=== PATIENT | female | born 1980 | race African-American/Black ===

== ENCOUNTER 2020-06-05 19:09 | Inpatient (IN) | payer SELFPAY ==
[~2020-06-05 19:09] MED LIST: Iopamidol 370 76% 100 ML VIAL ONE
[2020-06-05] MEDS ORDERED: Ketorolac Tromethamine 30 MG/ML VIAL ONE (19:55)
[2020-06-05] MEDS ORDERED: Vancomycin 1 GM/200 ML BAG ONE (19:55)
[2020-06-05] MEDS ORDERED: Morphine 4 MG/ML VIAL ONE (19:55)
--- NOTE | 2020-06-05 19:57 | RAD ---
EXAM: CHEST ONE VIEW HISTORY: Shortness of breath. COMPARISON: None FINDINGS: The cardiac silhouette and pulmonary vasculature are within normal limits. The lungs are clear. The o sseous structures are intact. IMPRESSION: No acute cardiopulmonary process.
[2020-06-05 20:02] LABS: Hemoglobin 12.2 g/dL (12.0-16.0); Mean Corpuscular HGB CONC 33.3 g/dL (32.0-36.0); Mean Corpuscular Hemoglobin 33.4 pg (27.0-31.0); Mean Platelet Volume 7.9 fL (7.4-10.4); Platelet Count 318 thou/uL (130-400); RBC Distribution Width 10.6 % (11.5-14.5); Red Blood Cell (RBC) Count 3.65 mill/uL (4.20-5.40)
[2020-06-05 20:07] LABS: Prothrombin Time 13.2 sec (12.0-14.7)
[2020-06-05] MEDS ORDERED: Ampicillin/Sulbactam 1.5 GM in Sodium Chloride 0.9% 100 ML IVPB ONE (20:15)
[2020-06-05 20:17] LABS: ALT (SGPT) 22 U/L (8-55); AST (SGOT) 19 U/L (5-34); Albumin 3.9 g/dL (3.5-5.0); Alkaline Phosphatase 95 U/L (40-110); Anion Gap 17 mmol/L (10-20); BUN (Urea Nitrogen) 8 mg/dL (7.0-18.7); Bilirubin, Total 0.6 mg/dL (0.2-1.2); Calc. Creatinine Clearance 0 mL/min (70-130); Calcium 8.8 mg/dL (7.8-10.44); Carbon Dioxide 20 mmol/L (22-29); Chloride 100 mmol/L (98-107); Globulin 4.6 g/dL (2.4-3.5); Glucose 110 mg/dL (70-105); Lipase 5 U/L (8-78); Potassium 3.8 mmol/L (3.5-5.1); Protein, Total 8.5 g/dL (6.0-8.3); Sodium 133 mmol/L (136-145)
[2020-06-05 20:23] LABS: Band 9 % (5-11); Lymphocytes 13 % (21-51); MDiff Complete? YES; Macrocytosis SLIGHT = 6-15 cells (100X) (0-5/hpf); Monocytes 5 % (0-10); Neutrophil 63 % (42-75); Platelet Morphology Comment Appears Adequate; Polychromasia SLIGHT = 2-3 cells (100X) (0-2/hpf); Reactive Lymphocytes 10 % (0-10)
[2020-06-05 20:23] LABS: Bacteria/HPF 2+ HPF (None Seen); Bilirubin Negative (Negative); Blood, Urine 1+ (Negative); Clarity Turbid (Clear); Glucose, Urine (Dipstick) Normal (Negative); Ketone, Urine Negative (Negative); Leukocyte 500 Leu/uL (Negative); Nitrite Negative (Negative); Protein, Urine (Dipstick) 20 mg/dL (Neg-Trace); Specific Gravity, Urine 1.011 (1.002-1.036); Transitional Epithelial 0-3 HPF (None Seen); WBC/HPF Greater than 50 HPF (0-3)
[2020-06-05 20:28] LABS: Yeast-Budding None Seen HPF (None Seen)
--- NOTE | 2020-06-05 22:52 | CT ---
EXAM: CT Facial Bones W Con PROVIDED CLINICAL HISTORY: Patient had tooth pulled from right mandible on . Patient was told she had infection but not administered antibiotics. Patient reports fevers. Evaluate for abscess. COMPARISON: None FINDINGS: There is absence of a right mandibular molar with lucency seen in the mandible and low-density area a s well as gas seen at this site with adjacent thinning of the lateral wall of the mandible. This is likely site of patient's recent tooth extraction. However, there is greater lucency seen at the expec delores location of the site of the root of the removed tooth which could be related to small abscess in this region. There is no adjacent fluid or fluid collection in the soft tissues to suggest abscess collection. No adjacent inflammatory stranding or fluid is seen. Paranasal sinuses and visualized mastoid air cells are clear. Facial bones are normal in appearance w ithout evidence of a fracture. The orbits are normal and symmetric in appearance bilaterally. Limited visualized base of the brain h as a normal CT appearance. IMPRESSION: Absence of a right mandibular molar likely related to site of patient's prior tooth extraction. The l ucency at site of the prior roots of the tooth are larger than expected and abscess in this region is a possibility. However, there is no inflammatory stranding, fluid, or fluid collection to suggest an abscess in the soft tissues adjacent to site of tooth extraction.
[2020-06-05 22:53] VITALS: BMI 34.9
[2020-06-05] MEDS ORDERED: Morphine 2 MG/ML VIAL SLOW IVP PRN (23:07)
[2020-06-05] MEDS ORDERED: Ondansetron ODT 4 MG TAB SL PRN (23:15)
[2020-06-05] MEDS ORDERED: Acetaminophen 325 MG TAB PO PRN (23:15)
[2020-06-05] MEDS ORDERED: Ondansetron PF 4 MG/2 ML Vial IVP PRN (23:15)
[2020-06-05] MEDS ORDERED: cefTRIAXone\\ROCEPHIN 1 GM in Sodium Chloride 0.9% 100 ML IVPB SCH (23:15)
[2020-06-05] MEDS: Sodium Chloride 0.9% 1,000 ML IV SCH (23:17)
--- NOTE | 2020-06-05 23:36 | PDOC.HHP ---
Hospitalist HPI - History of Present Illness Tooth pain, dysuria frequency History of Present Illness: This is a 40-year-old female patient with a history of bipolar disorder who presents with worsening pain in her jaw. She had a tooth extraction 3 days ago and she was told by her dentist a tooth was infected. She was not covered on antibiotics as he said extraction alone should be enough. Her jaw has progressively become worseleading her to the ED for further evaluation. Alongside she has been having increased urinary frequency and dysuria for the past couple of days with pain in her right flank. She notes having had a history of pyelonephritis diagnosed 2 years ago involving her right kidney. At presentation blood pressure was 145/101, pulse was 148, temperature 102.3 saturation 99% on room air. Labs showed WBC 19.0, hemoglobin 12.2, platelets 312. Sodium was 133, urinalysis showed 500 leukocyte esterase, greater than 50 WBCs 3+ bacteria. (Pain was assessed with the face bone CT which revealed absence of right mandibular molar and some concern for abscess at the roots of the tooth. She was initially given Unasyn and Toradol and vancomycin. Antibiotic was subsequently converted to ceftriaxone to cover for urinary tract infection Hospitalist team was consulted to admit. Hospitalist ROS - Review of Systems Constitutional: reports: fever, malaise. denies: chills, sweats, weakness Respiratory: denies: cough, dry, shortness of breath, hemoptysis Cardiovascular: denies: chest pain, palpitations, orthopnea, paroxysmal noc. dyspnea Gastrointestinal: reports: nausea. denies: vomiting, diarrhea Genitourinary: reports: dysuria, frequency. denies: incontinence, hematuria Neurological: denies: weakness, numbness, incoordination, change in speech All other systems reviewed; all pertinent +/- noted in HPI/Subj - Medication Medications: Active Medications Generic Name Dose Route Start Last Admin Trade Name Freq PRN Reason Stop Dose Admin Acetaminophen 650 mg 06/05/20 23:15 06/05/20 23:17 Acetaminophen 325 Mg Tab PO 06/06/20 09:20 650 mg Q4H PRN Administration Headache/Fever or Pain Sodium Chloride 1,000 mls @ 150 mls/hr 06/05/20 23:15 06/05/20 23:17 Normal Saline 0.9% IV 06/06/20 09:20 1,000 mls .Q6H40M QUINN Administration Ceftriaxone Sodium 1 gm/ 100 mls @ 200 mls/hr 06/05/20 23:15 06/05/20 23:16 Sodium Chloride IVPB 06/06/20 01:00 100 mls NOW QUINN Administration Kindly refer to ambulatory Rosalie for medication list. Allergies: Sulfamethoxazole, trimethoprim Hospitalist History - Past Medical History Other Medical History: Pyelonephritis, bipolar disorder - Past Surgical History Other Surgical History: section, tubal ligation - Family History Family History: reports: no pertinent history - Social History Smoking Status: Current every day smoker Alcohol: reports: Occassional Living Situation: With Family - Exam General Appearance: awake alert ENT: normocephalic atraumatic, no oropharyngeal lesions Heart: RRR, no murmur, no gallops Respiratory: CTAB, no wheezes, no rales, no ronchi Gastrointestinal: soft, non-distended, normal bowel sounds Gastrointestinal - other findings: Right flank tenderness. Extremities: no cyanosis, no clubbing, no edema Skin: normal turgor, no lesions Neurological: cranial nerve grossly intact, normal sensation to touch, no focal deficits Psychiatric: normal affect, normal behavior, A&O x 3 Hospitalist Results - Labs Result Diagrams: 06/05/20 19:21 06/05/20 19:21 Lab results: WBC 19.0 thou/uL (4.8-10.8) H 06/05/20 19:21 Hgb 12.2 g/dL (12.0-16.0) 06/05/20 19: Hct 36.6 % (36.0-47.0) 06/05/20 19: MCV 100.0 fL (78.0-98.0) H 06/05/20 19:21 Plt Count 318 thou/uL (130-400) 06/05/20 19:21 Band Neuts % (Manual) 9 % (5-11) 06/05/20 19: Sodium 133 mmol/L (136-145) L 06/05/20 19:21 Potassium 3.8 mmol/L (3.5-5.1) 06/05/20 19: Chloride 100 mmol/L (98-107) 06/05/20 19: Carbon Dioxide 20 mmol/L (22-29) L 06/05/20 19:21 BUN 8 mg/dL (7.0-18.7) 06/05/20 19: Creatinine 0.90 mg/dL (0.6-1.1) 06/05/20 19: Glucose 110 mg/dL (70-105) H 06/05/20 19:21 Lactic Acid 1.6 mmol/L (0.5-2.2) 06/05/20 19: Calcium 8.8 mg/dL (7.8-10.44) 06/05/20 19: Total Bilirubin 0.6 mg/dL (0.2-1.2) 06/05/20 19: AST 19 U/L (5-34) 06/05/20: ALT 22 U/L (8-55) 06/05/20: Alkaline Phosphatase 95 U/L (40-110) 06/05/20 19: Serum Total Protein 8.5 g/dL (6.0-8.3) H 06/05/20: Albumin 3.9 g/dL (3.5-5.0) 06/05/20 19: Lipase 5 U/L (8-78) L 06/05/20 19: Urine Ketones Negative mg/dL (Negative) 06/05/20 19: Urine Blood 1+ (Negative) A 06/05/20 19: Urine Nitrite Negative (Negative) 06/05/20 19:55 Ur Leukocyte Esterase 500 Farzad/uL (Negative) A 06/05/20 19:55 Urine RBC 4-6 HPF (0-3) A 06/05/20 19:55 Urine WBC Greater than 50 HPF (0-3) A 06/05/20 19:55 Ur Squamous Epith Cells 11-20 HPF (0-3) A 06/05/20 19:55 Urine Bacteria 2+ HPF (None Seen) A 06/05/20 19:55 Hospitalist H&P A/P - Plan Plan: This is a 40-year-old female patient presents on on account of worsening pain in her right shoulder after molar extraction a few days ago with also ongoing dysur ia and frequency with right flank pain concerning for pyelonephritis. Her vital signs are suggestive of sepsis. Sepsis Patient has fever of 101.2, tachycardia of 118, leukocytosis and source likely tooth and urinary tract Started on Unasyn and transitioned to ceftriaxone Received 2 L normal saline and continued on 125 mils per hour of normal saline We will continue antibiotic management and Zosyn Follow-up cultures. UTI/right pyelonephritis Continue IV fluids Continue on Zosyn Consider CT abdomen if no improvement noted Follow-up cultures. Right jaw abscess We will cover with Zosyn for now Consider dental evaluation in a.m. Hyponatremia Mild Monitor BMP Bipolar disorder Resume home medications once verified. Tobacco abuse Consult CODE STATUSfull code DVT prophylaxisLovenox
[2020-06-06] MEDS: Morphine 2 MG/ML VIAL SLOW IVP PRN ×4 (01:52→19:38)
[2020-06-06 02:08] LABS: SARS-CoV-2 MS2 Positive; SARS-CoV-2 N Gene Negative; SARS-CoV-2 S Gene Negative; SARS-CoV-2 by NAA Not Detected (NotDetected); SARS-CoV-2 orf1ab Negative
[2020-06-06] MEDS: Piperacillin/Tazobactam 4.5 GM in Sodium Chloride 0.9% 100 ML IVPB SCH ×3 (04:46→19:44)
[2020-06-06] MEDS: Sodium Chloride 0.9% 1,000 ML IV SCH ×3 (04:46→19:45)
[2020-06-06 06:03] LABS: #Eosinphils 0.1 thou/uL (0.0-0.7); #Lymphocytes 3.3 thou/uL (1.20-3.40); #Monocytes 1.6 thou/uL (0.11-0.59); #Neutrophils 7.9 thou/uL (1.40-6.50); %Basophils 0.3 % (0.0-1.0); %Eosinophils 1.1 % (0.0-10.0); %Lymphocytes 25.4 % (21.0-51.0); %Monocytes 12.3 % (0.0-10.0); %Neutrophils 60.7 % (42.0-75.0); Hemoglobin 10.6 g/dL (12.0-16.0); Mean Corpuscular HGB CONC 33.1 g/dL (32.0-36.0); Mean Corpuscular Hemoglobin 33.8 pg (27.0-31.0); Mean Platelet Volume 7.4 fL (7.4-10.4); Platelet Count 273 thou/uL (130-400); RBC Distribution Width 10.5 % (11.5-14.5); Red Blood Cell (RBC) Count 3.13 mill/uL (4.20-5.40)
--- NOTE | 2020-06-06 08:54 | PDOC.HOSPP ---
- Subjective Encounter Date: 06/06/20 Encounter Time: 11:00 Subjective: Patient feeling much better. Jaw not hurting at all today. Right flank/back pain improved. - Objective Vital Signs & Weight: Vital Signs (12 hours) Temp Pulse Resp BP BP Pulse Ox 06/06/20 08:05 98.1 F 95 16 119/84 99 06/06/20 04:50 98 F 81 16 106/67 97 06/05/20 22:53 98.4 F 100 18 119/83 99 Weight Weight 185 lb 3.2 oz Result Diagrams: 06/06/20 05:37 06/05/20 19:21 Hospitalist ROS - Review of Systems Constitutional: denies: fever, chills Respiratory: denies: cough, shortness of breath Cardiovascular: denies: chest pain, palpitations Gastrointestinal: denies: nausea, vomiting, abdominal pain Genitourinary: denies: dysuria, hematuria Musculoskeletal: reports: back pain - Medication Medications: Active Medications Generic Name Dose Route Start Last Admin Trade Name Freq PRN Reason Stop Dose Admin Acetaminophen 650 mg 06/05/20 23:15 06/05/20 23:17 Acetaminophen 325 Mg Tab PO 06/06/20 09:20 650 mg Q4H PRN Administration Headache/Fever or Pain Sodium Chloride 1,000 mls @ 150 mls/hr 06/05/20 23:15 06/06/20 04:46 Normal Saline 0.9% IV 06/06/20 09:20 1,000 mls .Q6H40M QUINN Administration Piperacillin Sod/Tazobactam 100 mls @ 200 mls/hr 06/06/20 04:00 06/06/20 04:46 Sod 4.5 gm/ Sodium Chloride IVPB 100 mls 0400,1200,2000 QUINN Administration Morphine Sulfate 2 mg 06/06/20 01:45 06/06/20 08:12 Morphine 2 Mg/Ml Vial SLOW IVP 2 mg Q4H PRN Administration Severe Pain (7-10) - Exam General Appearance: NAD, awake alert ENT: moist mucosa Heart: RRR, no murmur, no gallops, no rubs Respiratory: CTAB, no wheezes, no rales, no ronchi Gastrointestinal: soft, non-tender, non-distended, normal bowel sounds Extremities: no edema Musculoskeletal - other findings: Right sided CVA tenderness to percussion Psychiatric: normal affect, normal behavior, A&O x 3 Hosp A/P - Plan This is a 40-year-old female patient presents on on account of worsening pain in her right shoulder after molar extraction a few days ago with also ongoing dysuria and frequency with right flank pain concerning for pyelonephritis. Her vital signs are suggestive of sepsis. Sepsis Patient has fever of 101.2, tachycardia of 118, leukocytosis and source likely tooth and urinary tract Started on Unasyn and transitioned to ceftriaxone Received 2 L normal saline and continued on 125 mils per hour of normal saline We will continue antibiotic management and Zosyn Follow-up cultures. UTI/right pyelonephritis Continue IV fluids Continue on Zosyn Consider CT abdomen if no improvement noted Follow-up cultures. Will need at least one more day of IV abx. Will convert to inpatient status. Right jaw infection/possible abscess vs. dry socket We will cover with Zosyn for now, appears to be resolving Hyponatremia Mild Monitor BMP Bipolar disorder Resume home medications once verified. Tobacco abuse Consult CODE STATUSfull code DVT prophylaxisLovenox
[2020-06-06] MEDS: PARoxetine 20 MG TAB PO SCH (09:28)
[2020-06-06] MEDS: buPROPion HCl 100 MG TAB PO SCH (09:28)
[2020-06-06] MEDS ORDERED: traZODone HCl 150 MG TAB PO SCH (21:00)
[2020-06-07] MEDS: Piperacillin/Tazobactam 4.5 GM in Sodium Chloride 0.9% 100 ML IVPB SCH ×2 (03:39→11:40)
[2020-06-07] MEDS: Morphine 2 MG/ML VIAL SLOW IVP PRN ×2 (04:42→14:07)
[2020-06-07] MEDS: Sodium Chloride 0.9% 1,000 ML IV SCH ×2 (05:43→11:44)
[2020-06-07] MEDS: buPROPion HCl 100 MG TAB PO SCH (10:00)
[2020-06-07] MEDS: PARoxetine 20 MG TAB PO SCH (10:00)
--- NOTE | 2020-06-07 16:08 | PDOC.DS.DS ---
Provider - Provider Date of Admission: 06/06/20 08:55 Date of Discharge: 06/07/20 Admitting Provider: Lyle Torres MD Primary Care Physician: NO PCP PROVIDER Course - Hospital Course Hospital Course: This is a 40-year-old female patient presents on on account of worsening pain in her right shoulder after molar extraction a few days ago with also ongoing dysuria and frequency with right flank pain concerning for pyelonephritis. Her urine culture did show multi-sensitive Ecoli, she was started on Zosyn and responded well, for the past 24h her vitals have been stable and she is a- febrile.she is eager to go home. Her hgb dropped after hydration, she told me that she has chronic anemia, was on iron, has heavy menses, and has a history of fibroids. I believe that initially she was hemo-concentrated. She was advised to follow-up with pcp and [facility] for her anemia and fibroids, she verbalized understanding. she will be sent on 7 days of Augmentin and can resume home psych meds. Resuscitation Status: 06/05/20 23:24 Resuscitation Status Routine Resuscitation Status: FULL: Full Resuscitation - Labs Lab Results: 06/06/20 05:37 06/05/20 19:21 Abnormal Lab Results - Last 48 hrs 06/05/20 19:21: Sodium 133 L, Carbon Dioxide 20 L, Serum Total Protein 8.5 H, Globulin 4.6 H, Albumin/Globulin Ratio 0.8 L, Lipase 5 L 06/05/20 19:21: WBC 19.0 H, RBC 3.65 L, MCV 100.0 H, MCH 33.4 H, RDW 10.6 L, Lymphocytes % (Manual) 13 L 06/05/20 19:55: Urine Clarity Turbid A, Urine Blood 1+ A, Urine Urobilinogen 2.0 A, Ur Leukocyte Esterase 500 A, Urine RBC 4-6 A, Urine WBC Greater than 50 A, Ur Squamous Epith Cells 11-20 A, Ur Transition Epith Cell 0-3 A, Urine Bacteria 2+ A 06/06/20 05:37: WBC 13.0 H, RBC 3.13 L, Hgb 10.6 L, Hct 31.9 L, MCV 102.0 H, MCH 33.8 H, RDW 10.5 L, Monocytes % 12.3 H, Neutrophils # 7.9 H, Monocytes # 1.6 H Microbiology - Entire Visit 06/05/20 19:55 Urine clean catch Urine Culture - Final Escherichia coli 06/05/20 19:21 Venous blood - Right Arm Blood Culture - Preliminary NO GROWTH AT 48 HOURS 06/05/20 19:21 Venous blood - Left Hand Blood Culture - Preliminary NO GROWTH AT 48 HOURS - Physical Exam Vitals: Vital Signs (12 hours) Temp Pulse Resp BP Pulse Ox 06/07/20 11:55 98.3 F 95 14 126/84 98 06/07/20 08:10 98.4 F 91 16 116/80 97 06/07/20 04:21 98.2 F 97 18 121/78 98 Weight Weight 185 lb 3.2 oz Physical Exam: The patient was seen and examined on the day of discharge. Problem - Problem (1) UTI (urinary tract infection) Status: Acute (2) Dental abscess Code(s): K04.7 - PERIAPICAL ABSCESS WITHOUT SINUS Status: Acute (3) Anemia Code(s): D64.9 - ANEMIA, UNSPECIFIED Status: Acute (4) Bipolar 1 disorder Code(s): F31.9 - BIPOLAR DISORDER, UNSPECIFIED Status: Acute - Time spent with Patient (mins): 35 Plan - Discharge Medications Prescriptions: Amoxicillin/Potassium Clav [Augmentin 875-125 Tablet] 1 each PO BID #14 tablet Home Medications: Medication Instructions Recorded Confirmed Type PARoxetine HCl [Paxil] 20 mg PO DAILY 06/05/20 06/05/20 History buPROPion [Wellbutrin] 100 mg PO DAILY 06/05/20 06/05/20 History traZODone HCl [Trazodone HCl] 150 mg PO HS 06/05/20 06/05/20 History Amoxicillin/Potassium Clav 1 each PO BID #14 tablet 06/07/20 Rx [Augmentin 875-125 Tablet] Allergies: sulfamethoxazole [From Bactrim] Allergy (Verified 06/05/20 23:00) trimethoprim [From Bactrim] Allergy (Verified 06/05/20 23:00) - Follow up Plan Referrals: PROVIDER,NO PCP [Primary Care Provider] - Disposition: HOME
[2020-06-07 17:04] VITALS: BP 132/90; TEMP 98.2
== END 2020-06-07 18:20 | disposition home or self-care (01) | DRG 872 ==
LOC: ERS 19:09 → SJJU 21:31 → OBSVTOIN 06-06 08:55
PROVIDERS: ADMIT Student in an Organized Health Care Education/Training Program; ATTEND Emergency Medicine
DX: A41.51 Sepsis due to Escherichia coli [E. coli] (principal); E87.1 Hypo-osmolality and hyponatremia; N12 Tubulo-interstitial nephritis, not specified as acute or chronic; Z20.822 Contact with and (suspected) exposure to COVID-19; K04.7 Periapical abscess without sinus; F17.210 Nicotine dependence, cigarettes, uncomplicated; F31.9 Bipolar disorder, unspecified; Z87.440 Personal history of urinary (tract) infections; Z98.51 Tubal ligation status; Z79.899 Other long term (current) drug therapy
CPT/HCPCS: 36415; 70487; 71045; 80053; 81003; 81015; 83605; 83690; 85007; 85025; 85027; 85610; 85730; 87040; 87077; 87086; 87186; 87635; 93005; 94760; J0295; J0696; J1885; J2270; J2543; J3370; J3490; Q9967; U0003

== ENCOUNTER 2020-07-22 13:00 | Emergency (ER) | payer SELFPAY ==
--- NOTE | 2020-07-22 15:05 | CT ---
CT OF BRAIN PERFORMED WITHOUT CONTRAST ENHANCEMENT: HISTORY: Head injury status post fall on ice. FINDINGS: The ventricular and cisternal system is within normal limits. There are no signs of intracerebral he morrhage or extraaxial fluid collections. Mastoid air cells and visualized sinuses are clear. IMPRESSION: No acute intracranial abnormality. POS: GUI
--- NOTE | 2020-07-22 15:07 | CT ---
CT OF CERVICAL SPINE PERFORMED WITHOUT CONTRAST ENHANCEMENT: HISTORY: Neck injury status post fall. FINDINGS: The vertebral bodies are normal in height. Some degenerative osteophytic changes with slight reversa l to the normal cervical curve which could be related to muscle spasm. Facets appear to be in normal alignment. There is no evidence of canal or foraminal stenosis. There is no CT evidence for a frac ture. The lung apices are clear. IMPRESSION: No CT evidence of fracture of the cervical spine. POS: GUI
[2020-07-22] MEDS ORDERED: Ondansetron PF 4 MG/2 ML Vial ONE (15:13)
[2020-07-22] MEDS ORDERED: Morphine 4 MG/ML VIAL ONE (15:13)
--- NOTE | 2020-07-22 15:39 | RAD ---
AP CHEST: 07/22/20 HISTORY: Trauma. Head injury. Lungs are clear. Heart and mediastinum appear normal. Osseous structures unremarkable. IMPRESSION: No acute abnormality. POS: AGW
--- NOTE | 2020-07-22 16:21 | RAD ---
LEFT ANKLE THREE VIEWS: 07/22/20 HISTORY: Fall, left ankle pain. FINDINGS/IMPRESSION: No acute fracture or dislocation seen. POS: OFF
--- NOTE | 2020-07-22 16:21 | RAD ---
LEFT KNEE FOUR VIEWS: 07/22/20 HISTORY: Trauma, fall, left knee pain. FINDINGS/IMPRESSION: No fracture or dislocation is seen. POS: OFF
--- NOTE | 2020-07-22 16:22 | RAD ---
LEFT HIP TWO VIEWS: 07/22/20 HISTORY: Fall, left hip pain. FINDINGS/IMPRESSION: No acute fracture or dislocation is seen. POS: OFF
[2020-07-22 16:41] LABS: #Basophils 0.1 thou/uL (0.0-0.2); #Eosinphils 0.1 thou/uL (0.0-0.7); #Lymphocytes 3.2 thou/uL (1.20-3.40); #Monocytes 0.5 thou/uL (0.11-0.59); #Neutrophils 5.1 thou/uL (1.40-6.50); %Basophils 1.6 % (0.0-1.0); %Eosinophils 1.5 % (0.0-10.0); %Lymphocytes 35.1 % (21.0-51.0); %Monocytes 5.5 % (0.0-10.0); %Neutrophils 56.3 % (42.0-75.0); Hemoglobin 12.2 g/dL (12.0-16.0); Mean Corpuscular HGB CONC 32.7 g/dL (32.0-36.0); Mean Platelet Volume 7.2 fL (7.4-10.4); Platelet Count 327 thou/uL (130-400); RBC Distribution Width 10.7 % (11.5-14.5)
[2020-07-22] MEDS ORDERED: Acetaminophen/Codeine 30-300mg Tablet ONE (16:48)
[2020-07-22 17:00] LABS: ALT (SGPT) 15 U/L (8-55); AST (SGOT) 16 U/L (5-34); Albumin 3.7 g/dL (3.5-5.0); Alkaline Phosphatase 92 U/L (40-110); Anion Gap 13 mmol/L (10-20); BUN (Urea Nitrogen) 12 mg/dL (7.0-18.7); Bilirubin, Total 0.3 mg/dL (0.2-1.2); Calc. Creatinine Clearance 0 mL/min (70-130); Calcium 8.6 mg/dL (7.8-10.44); Carbon Dioxide 21 mmol/L (22-29); Chloride 106 mmol/L (98-107); Globulin 3.9 g/dL (2.4-3.5); Glucose 80 mg/dL (70-105); Potassium 4.2 mmol/L (3.5-5.1); Protein, Total 7.6 g/dL (6.0-8.3); Sodium 136 mmol/L (136-145)
== END 2020-07-22 17:11 | disposition home or self-care (01) ==
LOC: ERS 13:00
DX: S09.90XA Unspecified injury of head, initial encounter (principal); S93.402A Sprain of unspecified ligament of left ankle, initial encounter; S83.92XA Sprain of unspecified site of left knee, initial encounter; F17.210 Nicotine dependence, cigarettes, uncomplicated; W01.0XXA Fall on same level from slipping, tripping and stumbling without subsequent striking against object, initial encounter
CPT/HCPCS: 36415; 70450; 71045; 72125; 80053; 85025; 96374; 96375; J2270; J2405

== ENCOUNTER 2021-10-02 12:12 | Outpatient (CLI) | payer BC | END 2021-10-02 12:13 | disposition home or self-care (01) | LOC: MRI 12:12 | PROVIDERS: ATTEND Specialist | DX: M51.17 Intervertebral disc disorders with radiculopathy, lumbosacral region (principal); M47.816 Spondylosis without myelopathy or radiculopathy, lumbar region | CPT/HCPCS: 72148 ==

== ENCOUNTER 2021-10-17 08:49 | Outpatient (CLI) | payer BC | END 2021-10-17 08:50 | disposition home or self-care (01) | LOC: BICMAMMO 08:49 | PROVIDERS: ATTEND Family Medicine | DX: Z12.31 Encounter for screening mammogram for malignant neoplasm of breast (principal); Z80.3 Family history of malignant neoplasm of breast | CPT/HCPCS: 77063; 77067 ==

== ENCOUNTER 2022-05-22 15:00 | Outpatient (CLI) | payer BC | END 2022-05-22 15:01 | disposition home or self-care (01) | LOC: BICMAMMO 15:00 | PROVIDERS: ATTEND Family Medicine | DX: N63.10 Unspecified lump in the right breast, unspecified quadrant (principal); Z86.018 Personal history of other benign neoplasm | CPT/HCPCS: G0279 ==

== ENCOUNTER 2023-05-10 09:49 | Outpatient (CLI) | payer BC | END 2023-05-10 09:50 | disposition home or self-care (01) | LOC: SCSMRI 09:49 | PROVIDERS: ATTEND Nurse Practitioner Family | DX: M51.17 Intervertebral disc disorders with radiculopathy, lumbosacral region (principal); M51.16 Intervertebral disc disorders with radiculopathy, lumbar region | CPT/HCPCS: 72148 ==

== ENCOUNTER 2024-04-16 08:36 | Outpatient (CLI) | payer BC | END 2024-04-16 08:37 | disposition home or self-care (01) | LOC: BICMAMMO 08:36 | PROVIDERS: ATTEND Family Medicine | DX: Z12.31 Encounter for screening mammogram for malignant neoplasm of breast (principal); R92.1 Mammographic calcification found on diagnostic imaging of breast; Z80.3 Family history of malignant neoplasm of breast | CPT/HCPCS: 77063; 77067 ==

== ENCOUNTER 2024-04-22 13:22 | Outpatient (CLI) | payer BC | END 2024-04-22 13:23 | disposition home or self-care (01) | LOC: BICMAMMO 13:22 | PROVIDERS: ATTEND Family Medicine | DX: R92.1 Mammographic calcification found on diagnostic imaging of breast (principal) | CPT/HCPCS: G0279 ==